=== PATIENT | male | born 1980 ===

== ENCOUNTER 2018-11-08 18:27 | Emergency (ER) | payer OTHER, SELFPAY ==
[2018-11-08 18:31] VITALS: BP 127/89; PULSE 85; RESP 16; TEMP 37.2; O2SAT 100; BMI 28.8
--- NOTE | 2018-11-08 20:07 | PC.NURSE ---
Finger is bleeding copiously. Rinsed with saline and put Surgicel and Coban wrap. After 20 minutes, checked dressing underneath Coban and it was saturated with blood and leaking out bottom. Provider notified. Placed Surgifoam and rewrapped with Coban. Encouraged patient to hold above head.
[2018-11-08 21:43] VITALS: BP 129/98; PULSE 82; RESP 18; O2SAT 99
--- NOTE | 2018-11-08 22:36 | ED.WOUNDLAC ---
HPI - Wound/Laceration <SCOTT Lane - Last Filed: 11/08/18 22:41> General Chief Complaint: Wound/Laceration Stated Complaint: cut top of thumb using box toe maker Time Seen by Provider: 11/08/18 19:08 Source: patient Mode of arrival: ambulatory Limitations: no limitations History of Present Illness HPI narrative: Patient is a 38-year-old male nonsmoker presents with a chief complaint of a laceration to the top of his left thumb. He states his tetanus is within the past 4 years. He states he had accidentally with a box toe maker 9:00 a.m. this morning. He denies any decreased range of motion. He states that he is only in because he cannot get it to stop bleeding. Related Data Allergies Allergy/AdvReac Type Severity Reaction Status Date / Time No Known Drug Allergies Allergy Verified 11/08/18 18:31 Review of Systems <SCOTT Lane - Last Filed: 11/08/18 22:41> Review of Systems GENERAL: Denies chills, fatigue, malaise, fever, sweats. HEENT: Denies sinus pain, ear pain, sore throat, difficulty swallowing, dizziness. RESPIRATORY: Denies dyspnea, cough, wheezing, hemoptysis, sputum. CARDIOVASCULAR: Denies chest pain, palpitations, orthopnea, edema, GASTROINTESTINAL: Denies nausea, vomiting, abdominal pain, diarrhea, constipation, melena. : Denies dysuria, frequency, incontinence, hematuria, urinary retention. MUSCULOSKELETAL: denies weakness, joint pain, or bony pain SKIN: see HPI NEUROLOGIC: Denies weakness, headache, numbness, change in speech, confusion, seizures, incoordination. PSYCHIATRIC: No concerning psychosocial issues. 12 point review of systems is negative except for those stated above PFSH <SCOTT Lane - Last Filed: 11/08/18 22:41> Social History Smoking Status: Never smoker Social History Smoking Status: Never smoker Exam <SCOTT Lane - Last Filed: 11/08/18 22:41> Narrative Exam Narrative: GENERAL: This is a well-nourished, well-developed patient, with dressing on thumb HEAD: Atraumatic. Normocephalic. No temporal or scalp tenderness. EYES: Pupils equal round and reactive. Extraocular motions intact. No scleral icterus. No injection or drainage. ENT: Nose without bleeding, purulent drainage or septal hematoma. Throat without erythema, tonsillar hypertrophy or exudate. Uvula midline. Airway patent. NECK: Trachea midline. No JVD or lymphadenopathy. Supple, nontender, no meningeal signs. CARDIOVASCULAR: Regular rate and rhythm EXTREMITIES: Full range of motion left great finger. BACK: Nontender without deformity or crepitance. No flank tenderness. NEURO: AOx3. SKIN: 1 cm avulsion injury noted to distal phalanx left great finger. It is oozing blood continuously. Initial Vital Signs Initial Vital Signs: Vital Signs Temperature 98.9 F 11/08/18 18:31 Pulse Rate 85 11/08/18 18:31 Respiratory Rate 16 11/08/18 18:31 Blood Pressure 127/89 11/08/18 18:31 Pulse Oximetry 100 11/08/18 18:31 <Rakesh Kaur MD - Last Filed: 11/09/18 05:45> Initial Vital Signs Initial Vital Signs: Vital Signs Temperature 98.9 F 11/08/18 18:31 Pulse Rate 85 11/08/18 18:31 Respiratory Rate 16 11/08/18 18:31 Blood Pressure 127/89 11/08/18 18:31 Pulse Oximetry 100 11/08/18 18:31 Procedures <SCOTT Lane - Last Filed: 11/08/18 22:41> Laceration Repair Laceration 1: Site: hand Side (If applicable): left Size (cm): 1 Description: other (avulsion) Depth: simple, single layer Pre-repair: wound explored, irrigated extensively and deep structures intact Skin layer closed with: other (surgicel foam) Course <SCOTT Lane - Last Filed: 11/08/18 22:41> Vital Signs - 8 hr 11/08/18 18:31 11/08/18 21:43 Temperature 98.9 F Pulse Rate 85 82 Respiratory Rate 16 18 Blood Pressure 127/89 129/98 H Pulse Oximetry 100 99 <Rakesh Kaur MD - Last Filed: 11/09/18 05:45> Vital Signs - 8 hr 11/08/18 18:31 11/08/18 21:43 Temperature 98.9 F Pulse Rate 85 82 Respiratory Rate 16 18 Blood Pressure 127/89 129/98 H Pulse Oximetry 100 99 MDM - Wound/Laceration <NAZARIO LaneP-BC - Last Filed: 11/08/18 22:41> [facility] Narrative Medical decision making narrative: the patient is a 38-year-old male who presents with an avulsion laceration that he had difficulty controlling the bleeding with. He did bleed through Surgicel, but hemostasis was obtained with Surgicel foam. I did offer to use silver nitrate, but he declined stating that this closure cell foam worked well enough. I discussed monitoring for signs and symptoms of infection including redness, pus, fever. [place] Patient questions or concerns upon discharge. Discharge Plan Departure Patient Disposition: Home Clinical Impression: Avulsion of skin Discharge Date/Time: 11/08/18 21:44 Interventions: ED Discharge Assessment Last Done: 11/08/18 21:43 Instructions: DI for Avulsion Laceration (Not Requiring Sutures) Activity Restrictions/Additional Instructions: You have an avulsion injury to your thumb. We used Surgicel to help slow the bleeding. Please monitor for signs and symptoms of infection including redness, pus, discharge. Please follow up with primary care provider as we discussed. Please use [id number] pain medications as needed and able. Please try to restrict use of your thumb to allow the wound to heal. Please come back to emergency department if needed. Referrals: Ronny Simmons [Primary Care Provider] - <Rakesh Kaur MD - Last Filed: 11/09/18 05:45> Cosign ED Attending Sjature Attestation: I was working in the ER at the time of this patient's evaluation. I was available for verbal consult or to see the patient directly if needed. I agree with the patient's assessment and treatment plan.
--- NOTE | 2018-11-08 22:41 | ED_ITS ---
HPI - Wound/Laceration <SCOTT Lane - Last Filed: 11/08/18 22:41> General Chief Complaint: Wound/Laceration Stated Complaint: cut top of thumb using ordering box operator Time Seen by Provider: 11/08/18 19:08 Source: patient Mode of arrival: ambulatory Limitations: no limitations History of Present Illness HPI narrative: Patient is a 38-year-old male nonsmoker presents with a chief complaint of a laceration to the top of his left thumb. He states his tetanus is within the past 4 years. He states he had accidentally with a ordering box operator 9:00 a.m. this morning. He denies any decreased range of motion. He states that he is only in because he cannot get it to stop bleeding. Related Data Allergies Allergy/AdvReac Type Severity Reaction Status Date / Time No Known Drug Allergies Allergy Verified 11/08/18 18:31 Review of Systems <SCOTT Lane - Last Filed: 11/08/18 22:41> Review of Systems GENERAL: Denies chills, fatigue, malaise, fever, sweats. HEENT: Denies sinus pain, ear pain, sore throat, difficulty swallowing, dizziness. RESPIRATORY: Denies dyspnea, cough, wheezing, hemoptysis, sputum. CARDIOVASCULAR: Denies chest pain, palpitations, orthopnea, edema, GASTROINTESTINAL: Denies nausea, vomiting, abdominal pain, diarrhea, constipation, melena. : Denies dysuria, frequency, incontinence, hematuria, urinary retention. MUSCULOSKELETAL: denies weakness, joint pain, or bony pain SKIN: see HPI NEUROLOGIC: Denies weakness, headache, numbness, change in speech, confusion, seizures, incoordination. PSYCHIATRIC: No concerning psychosocial issues. 12 point review of systems is negative except for those stated above PFSH <SCOTT Lane - Last Filed: 11/08/18 22:41> Social History Smoking Status: Never smoker Social History Smoking Status: Never smoker Exam <SCOTT Lane - Last Filed: 11/08/18 22:41> Narrative Exam Narrative: GENERAL: This is a well-nourished, well-developed patient, with dressing on thumb HEAD: Atraumatic. Normocephalic. No temporal or scalp tenderness. EYES: Pupils equal round and reactive. Extraocular motions intact. No scleral icterus. No injection or drainage. ENT: Nose without bleeding, purulent drainage or septal hematoma. Throat without erythema, tonsillar hypertrophy or exudate. Uvula midline. Airway patent. NECK: Trachea midline. No JVD or lymphadenopathy. Supple, nontender, no meningeal signs. CARDIOVASCULAR: Regular rate and rhythm EXTREMITIES: Full range of motion left great finger. BACK: Nontender without deformity or crepitance. No flank tenderness. NEURO: AOx3. SKIN: 1 cm avulsion injury noted to distal phalanx left great finger. It is oozing blood continuously. Initial Vital Signs Initial Vital Signs: Vital Signs Temperature 98.9 F 11/08/18 18:31 Pulse Rate 85 11/08/18 18:31 Respiratory Rate 16 11/08/18 18:31 Blood Pressure 127/89 11/08/18 18:31 Pulse Oximetry 100 11/08/18 18:31 <Rakesh Kaur MD - Last Filed: 11/09/18 05:45> Initial Vital Signs Initial Vital Signs: Vital Signs Temperature 98.9 F 11/08/18 18:31 Pulse Rate 85 11/08/18 18:31 Respiratory Rate 16 11/08/18 18:31 Blood Pressure 127/89 11/08/18 18:31 Pulse Oximetry 100 11/08/18 18:31 Procedures <SCOTT Lane - Last Filed: 11/08/18 22:41> Laceration Repair Laceration 1: Site: hand Side (If applicable): left Size (cm): 1 Description: other (avulsion) Depth: simple, single layer Pre-repair: wound explored, irrigated extensively and deep structures intact Skin layer closed with: other (surgicel foam) Course <SCOTT Lane - Last Filed: 11/08/18 22:41> Vital Signs - 8 hr 11/08/18 18:31 11/08/18 21:43 Temperature 98.9 F Pulse Rate 85 82 Respiratory Rate 16 18 Blood Pressure 127/89 129/98 H Pulse Oximetry 100 99 <Rakesh Kaur MD - Last Filed: 11/09/18 05:45> Vital Signs - 8 hr 11/08/18 18:31 11/08/18 21:43 Temperature 98.9 F Pulse Rate 85 82 Respiratory Rate 16 18 Blood Pressure 127/89 129/98 H Pulse Oximetry 100 99 MDM - Wound/Laceration <NAZARIO LaneP-BC - Last Filed: 11/08/18 22:41> [facility] Narrative Medical decision making narrative: the patient is a 38-year-old male who presents with an avulsion laceration that he had difficulty controlling the bleeding with. He did bleed through Surgicel, but hemostasis was obtained with Surgicel foam. I did offer to use silver nitrate, but he declined stating that this closure cell foam worked well enough. I discussed monitoring for signs and symptoms of infection including redness, pus, fever. [place] Patient questions or concerns upon discharge. Discharge Plan Departure Patient Disposition: Home Clinical Impression: Avulsion of skin Discharge Date/Time: 11/08/18 21:44 Interventions: ED Discharge Assessment Last Done: 11/08/18 21:43 Instructions: DI for Avulsion Laceration (Not Requiring Sutures) Activity Restrictions/Additional Instructions: You have an avulsion injury to your thumb. We used Surgicel to help slow the bleeding. Please monitor for signs and symptoms of infection including redness, pus, discharge. Please follow up with primary care provider as we discussed. Please use [id number] pain medications as needed and able. Please try to restrict use of your thumb to allow the wound to heal. Please come back to emergency department if needed. Referrals: Ronny Simmons [Primary Care Provider] - <Rakesh Kaur MD - Last Filed: 11/09/18 05:45> Cosign ED Attending Sjature Attestation: I was working in the ER at the time of this patient's evaluation. I was available for verbal consult or to see the patient directly if needed. I agree with the patient's assessment and treatment plan.
== END 2018-11-08 21:44 | disposition home or self-care (01) ==
PROVIDERS: Emergency Provider Nurse Practitioner Family; PCP General Practice
DX: S61.012A Laceration without foreign body of left thumb without damage to nail, initial encounter (principal)
CPT/HCPCS: 12001; 99283